=== PATIENT | female | born 1985 | race Caucasian/White ===

== ENCOUNTER 2016-09-05 10:39 | Emergency (ER) | payer BC ==
[2015-04-09 06:07] VITALS: BMI 33.4
[~2016-09-05 10:39] MED LIST: DOXYCYCLINE HY100 M2 PO; HYDROCODON-ACE1 EAC7 PO; HYDROCODONE-APA1 TAB PO; IBUPROFEN600 MG PO; METHYLERGONOVI0.2 MG PO; PRENAVITE1 TAB PO; PROTONIX40 MG
[2016-09-05 11:29] LABS: BASOPHILS 0.2 % (0.0-2.0); EOSINOPHILS 0.6 % (0-7); HEMATOCRIT 40.8 % (36.0-48.0); HEMOGLOBIN 13.5 g/dL (12-16); IMMATURE GRANULOCYTES 0.1 % (0-5); LYMPHOCYTES 29.3 % (15-50); MCHC 33.1 g/dL (31.0-37.0); MCV 81.6 fL (80.0-100.0); MEAN PLATELET VOLUME 10.7 fL (7.4-10.4); NEUTROPHILS 65.8 % (40-80); RDW 12.9 % (11.5-14.5); WBC 8.5 10x3/uL (4.8-10.8)
[2016-09-05 11:29] LABS: APPEARANCE CLEAR (CLEAR); BILIRUBIN NEGATIVE (NEGATIVE); COLOR YELLOW (YELLOW); GLUCOSE NEGATIVE (NEGATIVE); KETONE NEGATIVE (NEGATIVE); LEUKOCYTE ESTERASE NEGATIVE (NEGATIVE); NITRITE NEGATIVE (NEGATIVE); PROTEIN NEGATIVE (NEGATIVE); SPECIFIC GRAVITY 1.015 (1.005-1.020); UROBILINOGEN NORMAL (NORMAL)
[2016-09-05 11:31] LABS: BACTERIA MODERATE /hpf (NONE SEEN); EPITHELIAL CELLS 0-5 /hpf (0-5); MUCUS >1+ /lpf (NONE SEEN); RED CELLS - URINE 0-5 /hpf (0-5); WHITE CELLS - URINE RARE /hpf (0-5)
[2016-09-05 11:31] LABS: PLATELET COUNT 235 10x3/uL (130-400)
[2016-09-05 11:35] LABS: HCG SERUM NEGATIVE (NEGATIVE)
[2016-09-05 11:41] LABS: ALBUMIN 4.6 g/dL (3.4-5.0); ALKALINE PHOSPHATASE 76 U/L (46-116); ALT (SGPT) 23 U/L (10-68); CALC OSMOLALITY 278 mosm/kg (275-300); CALCIUM 9.1 mg/dL (8.5-10.1); CARBON DIOXIDE 21.8 mmol/L (21.0-32.0); CHLORIDE - SERUM 107 mmol/L (98-107); CREATININE - SERUM 0.9 mg/dL (0.6-1.3); GLUCOSE 94 mg/dL (74-106); POTASSIUM - SERUM 3.6 mmol/L (3.5-5.1); SODIUM 140 mmol/L (136-145); UREA NITROGEN 12 mg/dL (7-18); eGFR NON AFRICAN AMERICAN 77 mL/min (90-120)
== END 2016-09-05 16:43 | disposition home or self-care (01) ==
LOC: D.ER 10:39
PROVIDERS: Emergency Medicine
DX: N94.0 Mittelschmerz (principal); K21.9 Gastro-esophageal reflux disease without esophagitis

== ENCOUNTER 2017-02-22 05:15 | Day surgery (SDC) | payer BC ==
[2017-02-20 11:13] LABS: BASOPHILS 0.3 % (0-2); HEMOGLOBIN 13.3 g/dL (12-16); LYMPHOCYTES 32.3 % (15-50); MCH 27.4 pg (26.0-34.0); MCHC 33.3 g/dL (31.0-37.0); MCV 82.3 fL (80.0-100.0); MEAN PLATELET VOLUME 10.5 fL (7.4-10.4); MONOCYTES 6.1 % (2-11); NEUTROPHILS 60.3 % (40-80); RBC 4.86 10x6/uL (4.00-5.40); WBC 6.8 10x3/uL (4.8-10.8)
[2017-02-20 11:15] LABS: PLATELET COUNT 168 10x3/uL (130-400)
[2017-02-20 11:23] LABS: CALC OSMOLALITY 277 mosm/kg (275-300); CALCIUM 8.7 mg/dL (8.5-10.1); CARBON DIOXIDE 24.9 mmol/L (21.0-32.0); CHLORIDE - SERUM 105 mmol/L (98-107); CREATININE - SERUM 0.8 mg/dL (0.6-1.3); GLUCOSE 100 mg/dL (74-106); SODIUM 139 mmol/L (136-145); UREA NITROGEN 12 mg/dL (7-18); eGFR NON AFRICAN AMERICAN 88 mL/min (90-120)
[~2017-02-22] VITALS: Ht 167.6 cm; Wt 88.9 kg
[2017-02-22 06:17] VITALS: BP 109/65; Ht 167.6 cm; Wt 88.9 kg
[2017-02-22 06:27] LABS: HCG URINE NEGATIVE (NEGATIVE)
--- NOTE | 2017-02-22 08:37 | NUR ---
THE PATIENT COMPLAINS OF CRAMPING BUT NO PAIN
--- NOTE | 2017-02-22 08:38 | NUR ---
KPT DENIES PAIN MEDICATION IN RR
--- NOTE | 2017-02-22 08:41 | NUR ---
ABLASION TIME 64 SEC
--- NOTE | 2017-02-22 09:45 | NUR ---
0900 FULL LIQUID TRAY GIVEN
--- NOTE | 2017-02-22 10:19 | NUR ---
0955 PT UP TO BATHROOM WITH JUST LITTLE PINKISH FLUID NOTED PT DRESSED AND DC TEACHING COMPLETE. PIV REMOVED CATHETER TIP INTACT. 1000 PT DC VIA WC OUT TO [facility] WITH DRIVING.
--- NOTE | 2017-02-26 17:48 | OP ---
PATIENT NAME: DAVID DALY MEDICAL RECORD: [id number] :83 LOCATION:D.FORMERLY [facility] [place] ADMISSION DATE: SURGEON: PAOLO HERNANDEZ MD DATE OF OPERATION: 02/22/2017 PREOPERATIVE DIAGNOSES: 1. Menorrhagia. 2. Polycystic ovarian syndrome. POSTOPERATIVE DIAGNOSES: 1. Menorrhagia. 2. Polycystic ovarian syndrome. PROCEDURE: Diagnostic hysteroscopy and NovaSure endometrial ablation. SURGEON: Paolo Hernandez MD. ESTIMATED BLOOD LOSS: Minimal. INTRAVENOUS FLUIDS: Per anesthesia record. HYSTEROSCOPIC FLUID LOSS: 200 cc of 0.9 normal saline. SPECIMENS: None. COMPLICATIONS: None apparent. PROCEDURE IN DETAIL: Patient was taken to the operating room where general anesthesia was achieved without difficulty. Patient was then prepped and draped in normal sterile fashion in the dorsal lithotomy position in the [facility]. SCDs were on and functioning normally. The bladder was then straight cathed of approximately 100 cc of clear yellow urine. A Graves speculum was placed into the vagina and the anterior lip of the cervix was grasped with a single-tooth tenaculum. The uterus sounded to 9 cm and dilation was performed up to approximately 8 mm. At this point, the hysteroscope was inserted into the uterus and survey of the cavity was performed. At this point, the SureSound device was used to measure cavity length of approximately 6.5 cm. The NovaSure was placed into the uterine cavity without difficulty and deployed to a cavity width of 4.2 cm. The guide collar was then slid forward to the cervical os. The cavity assessment passed and the vacuum assessment passed and the patient had a burn of approximately 65 seconds. Following the end of the burn cycle, the device was unlocked and the NovaSure was removed via the bow and arrow technique. The tenaculum was then removed. Small bleeding was noted from the tenaculum sites. Ring forceps were placed on the bleeders for approximately 30 seconds resulting in good hemostasis. Minimal bleeding was noted from the cervical os at that time. The patient tolerated the procedure well, transferred to postanesthesia recovery stable without incident. 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
== END 2017-02-22 10:00 | disposition home or self-care (01) ==
LOC: D.OPS 05:15 → D.PAN 08:30 → D.OPS 08:30
PROVIDERS: Obstetrics & Gynecology
DX: E28.2 Polycystic ovarian syndrome (principal); N92.0 Excessive and frequent menstruation with regular cycle; N91.2 Amenorrhea, unspecified; F41.9 Anxiety disorder, unspecified; Z87.442 Personal history of urinary calculi; Z88.0 Allergy status to penicillin; Z79.1 Long term (current) use of non-steroidal anti-inflammatories (NSAID); Z01.812 Encounter for preprocedural laboratory examination